=== PATIENT | male | born 1985 | race Caucasian/White ===

== ENCOUNTER 2020-10-01 03:33 | Emergency (ER) | payer SELFPAY ==
[2020-10-01 03:37] VITALS: BP 135/100; PULSE 90; RESP 16; TEMP 36.7; O2SAT 100; BMI 29.9
--- NOTE | 2020-10-01 03:51 | XRR_ITS ---
PROCEDURE INFORMATION: Exam: XR Right Foot Exam date and time: 10/01/2020 4:02 AM Age: 34 years old Clinical indication: Pain and injury or trauma; Other: Rolled ankle; Sprain or strain; Ankle and foot; Right; Injury date: 10/01/20; Prior surgery; Surgery type: RT ankle; Patient HX: Pain, proximal dorsal foot TECHNIQUE: Imaging protocol: XR Right foot. Views: 3 or more views. COMPARISON: No relevant prior studies available. FINDINGS: Bones/joints: Two orthopedic screws bridge an old medial malleolar fracture. 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 No recent fracture or other acute abnormalities are seen. Soft tissues: Normal. XR/XR foot RT min 3V* [id number] IMPRESSION: 1. Chronic degenerative disease in the ankle joint. 2. No acute abnormalities are seen in the foot.
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
[2020-10-01] MEDS: ketorolac 60 mg/2 mL INJ IM (04:23)
[2020-10-01 05:50] VITALS: BP 132/97; PULSE 87; RESP 17; O2SAT 99
--- NOTE | 2020-10-01 05:53 | PC.NURSE ---
Walking boot placed on patient right leg with instructions given.
== END 2020-10-01 05:50 | disposition home or self-care (01) ==
PROVIDERS: Emergency Provider Family Medicine; PCP Nurse Practitioner Family
DX: S93.401A Sprain of unspecified ligament of right ankle, initial encounter (principal); S93.601A Unspecified sprain of right foot, initial encounter; X50.1XXA Overexertion from prolonged static or awkward postures, initial encounter
CPT/HCPCS: 73610; 73630; 96372; 99283; J1885

== ENCOUNTER 2021-04-06 15:41 | Emergency (ER) | payer SELFPAY ==
[2021-04-06 15:58] VITALS: BP 124/81; PULSE 78; RESP 17; TEMP 37; O2SAT 96; BMI 33.5
--- NOTE | 2021-04-06 16:23 | XRR_ITS ---
PROCEDURE INFORMATION: Exam: XR Right Ankle Exam date and time: 04/06/2021 4:23 PM Age: 35 years old Clinical indication: Injury or trauma; Fall; Blunt trauma; Ankle; Right; Prior surgery; Additional info: Trauma/pain; Previous injury/surgeries TECHNIQUE: Imaging protocol: XR Right ankle. Views: 3 or more views. COMPARISON: CR XR ankle RT min 3V* [id number] 10/01/2020 3:48 AM FINDINGS: Bones/joints: Stable screws in the medial right tibia. The bones are intact. No fracture identified. Degenerative changes of the right ankle joint. Small calcaneus spur. Soft tissues: Normal. XR/XR ankle RT min 3V* [id number] IMPRESSION: 1. No acute finding. Radiation Dose CTDIVOL = (mGy): DLP = (mGy-cm)
--- NOTE | 2021-04-06 16:23 | XRR_ITS ---
PROCEDURE INFORMATION: Exam: XR Right Foot Exam date and time: 04/06/2021 4:23 PM Age: 35 years old Clinical indication: Injury or trauma; Fall; Blunt trauma; Foot; Right; Prior surgery; Additional info: Trauma/pain; Previous injury/surgeries TECHNIQUE: Imaging protocol: XR Right foot. Views: 3 or more views. COMPARISON: CR XR ankle RT min 3V* [id number] 10/01/2020 3:48 AM FINDINGS: Bones/joints: Screws in the distal tibia. The bones are intact and in normal alignment. Make in the on no acute findings. Soft tissues: Normal. XR/XR foot RT min 3V* [id number] IMPRESSION: No acute finding. Radiation Dose CTDIVOL = (mGy): DLP = (mGy-cm)
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
== END 2021-04-06 17:08 | disposition home or self-care (01) ==
PROVIDERS: Emergency Provider Physician Assistant
DX: S93.601A Unspecified sprain of right foot, initial encounter (principal); W20.8XXA Other cause of strike by thrown, projected or falling object, initial encounter
CPT/HCPCS: 73610; 73630; 99281

== ENCOUNTER 2021-08-24 19:00 | Inpatient (IN) | payer SELFPAY ==
[2021-08-24 19:04] VITALS: BP 148/101; PULSE 125; RESP 18; TEMP 37.7; O2SAT 97; BMI 36.3
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
[2021-08-24 20:05] LABS: Basophils # 0.1 10^3/uL (0.0-0.1); Basophils % 0.5 %; Eosinophils # 0.1 10^3/uL (0.0-0.8); Eosinophils % 0.7 %; Hematocrit 44.8 % (42.0-52.0); Hemoglobin 14.9 g/dL (11.7-16.6); Lymphocytes # 1.8 10^3/uL (0.8-4.8); Lymphocytes % 14.3 %; Mean Corpuscular HGB Conc 33.3 g/dL (30.0-36.0); Mean Corpuscular Hemoglobin 29.7 pg (28.0-34.0); Mean Corpuscular Volume 89.2 fl (80-94); Mean Platelet Volume 9.7 fL (7.4-10.4); Monocytes # 1.1 10^3/uL (0.2-0.9); Monocytes % 8.7 %; Neutrophils # 9.42 10^3/uL (1.8-7.7); Neutrophils % 75.6 %; Nucleated Red Blood Cells % 0 %; Platelet Count 265 10^3/cmm (130-400); Red Blood Count 5.02 10^6/uL (4.1-5.3); Red Cell Distribution Width 13.6 % (12.1-15.1); White Blood Count 12.5 10^3/uL (4.0-10.0)
[2021-08-24 20:34] LABS: Alanine Aminotransferase 34 U/L (0-41); Albumin Level 4.7 g/dL (3.5-5.2); Alkaline Phosphatase 86 IU/L (40-130); Anion Gap 14.8 (5-19); Aspartate Amino Transferase 21 U/L (0-40); Blood Urea Nitrogen 16 mg/dL (6-20); Calcium 8.9 mg/dL (8.5-10.5); Carbon Dioxide 24 mmol/L (22-29); Chloride 105 mmol/L (98-107); Glomerular Filtration Rate 62.5 mL/min (90-130); Glucose 100 mg/dL (65-115); Osmolality Calculated 291 mOsm/kg (285-295); Potassium 3.8 mmol/L (3.5-5.1); Sodium 140 mmol/L (136-145); Thyroid Stimulating Hormone 0.94 uIU/mL (0.27-4.20); Total Bilirubin 0.6 mg/dL (0.15-1.2); Total Protein 7.7 g/dL (6.6-8.7)
[2021-08-24 20:38] LABS: Acetaminophen < 5.0 ug/mL (10-30); Alcohol Level < 10 mg/dL (0-10); Salicylate < 0.3 mg/dL (3-10)
[2021-08-24 20:41] LABS: Amphetamines Screen Urine Positive (Negative); Barbiturates Screen Urine Negative (Negative); Benzodiazepines Screen Urine Negative (Negative); Cocaine Screen Urine Negative (Negative); Opiate Screen Urine Negative (Negative); PCP Screen Urine Negative (Negative); THC Screen Urine Positive (Negative)
[2021-08-24 22:00] VITALS: BP 138/88; PULSE 108; RESP 1; O2SAT 98
[2021-08-24 22:10] VITALS: BP 140/95; PULSE 93; RESP 20; TEMP 36.4; O2SAT 96
[2021-08-25 06:00] VITALS: BP 111/74; PULSE 66; RESP 18; TEMP 36.4; O2SAT 96
--- NOTE | 2021-08-25 11:37 | NPU.GN ---
[facility] Unit Group Topic:Maira Hancock General Mood of Group:Theodore did not attend group today. [facility] met with Theodore and discussed [facility] services and was aided in completing the [facility] new patient packet.
[2021-08-25 14:00] VITALS: BP 127/88; PULSE 79; RESP 18; TEMP 36.4; O2SAT 96
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
[2021-08-25 20:12] VITALS: BP 125/64; PULSE 79; RESP 18; TEMP 36.5; O2SAT 98
[2021-08-26 06:00] VITALS: BP 117/72; PULSE 63; RESP 16; TEMP 36.2; O2SAT 98
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
--- NOTE | 2021-08-26 11:30 | NPU.GN ---
[facility] Unit Group Topic: Roll The Dice General Mood of Group: Theodore did not attend group today.
[2021-08-26 14:00] VITALS: BP 99/61; PULSE 78; RESP 18; TEMP 36.6; O2SAT 98
== END 2021-08-26 14:30 | disposition home or self-care (01) | DRG 885 ==
LOC: ER 21:33 → NP 08-25 07:03
PROVIDERS: Admitting Provider Psychiatry & Neurology Psychiatry; Emergency Provider Emergency Medicine; Visit Provider Psychiatry & Neurology Psychiatry
DX: F29 Unspecified psychosis not due to a substance or known physiological condition (principal); R45.89 Other symptoms and signs involving emotional state
CPT/HCPCS: 80053; 80306; 80307; 84443; 85025; 97165; 99285